=== PATIENT | male | born 1995 | race Caucasian/White ===

== ENCOUNTER 2018-04-15 15:03 | Emergency (ER) | payer OTHER ==
[2018-04-15] MEDS ORDERED: Benoxinate/Fluorescein 0.4-0.25% Ophth Soln 5 ML Bottle EYERT ONE (15:51)
[2018-04-15] MEDS ORDERED: Proparacaine 0.5% Ophth Soln 15 ML Bottle EYERT ONE (15:51)
--- NOTE | 2018-04-15 15:53 | EDM.PDOC ---
<Cecilio Obregon - Last Filed: 04/15/18 16:19> ED HPI GENERAL MEDICAL PROBLEM - General Chief Complaint: Eye Problems Stated Complaint: RIGHT EYE VISION CHANGES Time Seen by Provider: 04/15/18 15:25 - Related Data Allergies Allergy/AdvReac Type Severity Reaction Status Date / Time cefdinir Allergy Hives Verified 04/15/18 15:15 Home Meds: Home Meds . [No Known Home Meds] 04/15/18 [History] Course - Vital Signs Last Recorded V/S: Last Vital Signs Temp 99.2 F 04/15/18 15:08 Pulse 96 04/15/18 15:08 Resp 18 04/15/18 15:08 BP 170/101 H 04/15/18 15:08 Pulse Ox 99 04/15/18 15:08 - Orders/Labs/Meds Meds: Medications Discontinued Medications Generic Name Dose Route Start Last Admin Trade Name Kvng PRN Reason Stop Dose Admin Erythromycin 1 gm 04/15/18 16:12 04/15/18 16:34 Erythromycin 0.5% Ophth Oint EYERT 04/15/18 16:13 1 dose ONETIME ONE Administration Fluorescein Sodium Confirm 04/15/18 15:54 Ful-Tatiana Administered 04/15/18 15:55 Dose 0.6 mg .ROUTE .STK-MED ONE Fluorescein Sodium/Benoxinate HCl 1 ml 04/15/18 15:51 Fluress Ophth Soln EYERT 04/15/18 15:52 ONETIME ONE Proparacaine HCl 1 ml 04/15/18 15:51 Proparacaine 0.5% Ophth Soln EYERT 04/15/18 15:52 ONETIME ONE Departure - Departure Disposition: Home, Self-Care 01 Clinical Impression: Corneal abrasion Qualifiers: Encounter type: initial encounter Laterality: right Qualified Code(s): S05.01XA - Injury of conjunctiva and corneal abrasion without foreign body, right eye, initial encounter - Discharge Information Instructions: Corneal Abrasion Referrals: PCP,None [Primary Care Provider] - Forms: ED Department Discharge Additional Instructions: Erythromycin ointment - Apply 1 cm ribbon to right eye up to 6 times a day for 7 -10 days. Follow-up with an opthalamologist of your choice tomorrow for corneal abrasion. <Dimitris Hall O - Last Filed: 04/15/18 18:57> ED HPI GENERAL MEDICAL PROBLEM - General Source of Information: Reports: Patient History Limitations: Reports: No Limitations - History of Present Illness INITIAL COMMENTS - FREE TEXT/NARRATIVE: Patient is a 23 y/o male who presents to the E.D. complaining of right eye blurriness with mild irritation. States he awoke with this and has noted decrease in the symptoms since onset. Noted one episode of when his right eye completely blacked out for only a few seconds. Since he had no further recurrences. This was while he was working out. He denied any trauma to his head , dizziness, holding his breath, or the sensation that he was going to pass out. States he has been rubbing his eyes. States his right eye is irritated but does not believe is related to a corneal abrasion. He has had this in the past. Of note patient does wear contacts on a regular basis. He does not sleep in his contacts. Has developed a slight headache generalized with wearing his glasses which is normal. Has not been experiencing any abnormal drainage from his right eye. There's been no upper respiratory-like symptoms. His recent trauma noted. Denies any fever or-like symptoms. Again symptoms are improving. Past Medical History Cardiovascular History: Reports: Other (See Below) Other Cardiovascular History: tachycardia as a child, medicated then and has been since normal - Past Surgical History HEENT Surgical History: Reports: Other (See Below) Other HEENT Surgeries/Procedures: broken nose and repair Social & Family History - Family History Family Medical History: Noncontributory - Tobacco Use Smoking Status *Q: Never Smoker - Caffeine Use Caffeine Use: Reports: None - Recreational Drug Use Recreational Drug Use: No ED ROS GENERAL - Review of Systems Review Of Systems: ROS reveals no pertinent complaints other than HPI. ED EXAM GENERAL W FULL EYE - Physical Exam Exam: See Below Exam Limited By: No Limitations General Appearance: Alert, WD/WN, No Apparent Distress Eye Exam: Right Eye: Vision Changes, Bilateral Eye: EOMI, Normal Inspection, PERRL Visual Acuity (R) 20/: 50 Visual Acuity (L) 20/: 25 With Correction: Yes Eyelids: Bilateral: Normal Appearance Conjunctiva & Sclera: Bilateral: Normal Appearance Cornea Exam: Right: Corneal Abrasion, Bilateral: Examined with Flourescein Extraocular Movements: Bilateral: Intact Pupillary Size: Bilateral: 4 mm Pupillary Reaction: Bilateral: Brisk Anterior Chamber: Right: Normal Appearance Posterior Chamber: Right: Unable to Examine Ears: Hearing Grossly Normal Nose: Normal Inspection Throat/Mouth: Normal Voice, No Airway Compromise Head: Atraumatic, Normocephalic Neck: Normal Inspection, Supple Respiratory/Chest: No Respiratory Distress, No Accessory Muscle Use Neurological: Alert, Oriented, CN II-XII Intact, Normal Cognition, No Motor/ Sensory Deficits Psychiatric: Normal Affect, Normal Mood Skin Exam: Warm, Dry, Intact, Normal Color Course - Orders/Labs/Meds Meds: Medications Discontinued Medications Generic Name Dose Route Start Last Admin Trade Name Reneq PRN Reason Stop Dose Admin Erythromycin 1 gm 04/15/18 16:12 04/15/18 16:34 Erythromycin 0.5% Ophth Oint EYERT 04/15/18 16:13 1 dose ONETIME ONE Administration Fluorescein Sodium Confirm 04/15/18 15:54 Ful-Tatiana Administered 04/15/18 15:55 Dose 0.6 mg .ROUTE .STK-MED ONE Fluorescein Sodium/Benoxinate HCl 1 ml 04/15/18 15:51 Fluress Ophth Soln EYERT 04/15/18 15:52 ONETIME ONE Proparacaine HCl 1 ml 04/15/18 15:51 Proparacaine 0.5% Ophth Soln EYERT 04/15/18 15:52 ONETIME ONE - Re-Assessments/Exams Free Text/Narrative Re-Assessment/Exam: Visual acuity testing 20/50 right eye 20/25 left eye. Patient was wearing corrective glasses. Blurriness is improving per patient. Patient has a corneal abrasion noted to the right eye. This extends from the center towards 2:00 position. Erythromycin ointment ordered. Patient discharged home with a tube of erythromycin ointment. He will follow up with chocolatier tomorrow morning for reevaluation. Departure - Departure Time of Disposition: 18:12 Condition: Good
[2018-04-15] MEDS ORDERED: Fluorescein 0.6 MG Ophth Strip ONE (15:54)
[2018-04-15] MEDS ORDERED: Erythromycin Base 0.5% Ophth Oint 1 GM Tube EYERT ONE (16:12)
== END 2018-04-15 16:35 | disposition home or self-care (01) ==
LOC: JD.ED 15:03
DX: S05.01XA Injury of conjunctiva and corneal abrasion without foreign body, right eye, initial encounter (principal); X58.XXXA Exposure to other specified factors, initial encounter
CPT/HCPCS: 99283; A9270